=== PATIENT | male | born 1975 | race Caucasian/White ===

== ENCOUNTER 2017-04-28 02:49 | Emergency (ER) | payer MEDICAID ==
[~2017-04-28] VITALS: Ht 167.6 cm; Wt 86.0 kg
[2017-04-28 02:55] VITALS: Ht 167.6 cm; Wt 86.0 kg
[2017-04-28] MEDS ORDERED: SOD CHLORIDE 0.9% 1,000 ML IV STA (04:25)
[2017-04-28 04:58] LABS: ADD SCAN DIFF NO
[2017-04-28 05:00] LABS: BASOPHILS % 0.6 % (0.0-2.0); HEMATOCRIT 41.3 % (42.0-52.0); HEMOGLOBIN 14.8 g/dl (14.0-18.0); LYMPHOCYTES # 0.8 10^3/ul (0.8-2.9); LYMPHOCYTES % 13.5 % (15.0-51.0); MEAN CORPUSCULAR HEMOGLOBIN 31.4 pg (29.0-33.0); MEAN CORPUSCULAR HGB CONC 35.8 g/dl (32.0-37.0); MEAN CORPUSCULAR VOLUME 87.5 fl (82.0-101.0); MEAN PLATELET VOLUME 10.7 fl (7.4-10.4); MONOCYTE # 0.5 10^3/ul (0.3-0.9); MONOCYTES % 8.7 % (0.0-11.0); NEUTROPHIL # 4.8 10^3/ul (1.6-7.5); PLATELET COUNT 180 10^3/UL (140-415); RED BLOOD COUNT 4.72 10^6/ul (4.70-6.10); RED CELL DISTRIBUTION WIDTH 12.3 % (11.5-14.5); WHITE BLOOD COUNT 6.2 10^3/ul (4.8-10.8)
--- NOTE | 2017-04-28 05:13 | RADRPT ---
PROCEDURE: Chest. CLINICAL INDICATION: Chest pain. TECHNIQUE: Single frontal view of the chest was obtained. COMPARISON: None. FINDINGS: The cardiac silhouette is magnified. The aortic arch is unremarkable. There is no focal consolidat ion, vascular congestion or pleural effusion. There is no pneumothorax. IMPRESSION: No evidence for active cardiopulmonary disease. .Lukas Zapien MD, MD Date Time Electronically viewed and signed by .Lukas Zapien MD, on 04/28/2017 05:12 .T/
[2017-04-28 05:19] LABS: INR 1.11; PROTIME 14.3 Sec (12.2-14.2); PT RATIO 1.1
[2017-04-28 05:20] LABS: PARTIAL THROMBOPLASTIN TIME 27.5 Sec (25.0-35.0)
[2017-04-28 05:21] LABS: ANION GAP 24 (8-16); BLOOD UREA NITROGEN 6 mg/dl (7-20); CALCIUM 9.9 mg/dl (8.4-10.2); CARBON DIOXIDE 19 mmol/L (21-31); CHLORIDE 105 mmol/L (97-110); CREATININE 0.69 mg/dl (0.61-1.24); GLUCOSE 122 mg/dl (70-220); POTASSIUM 3.7 mmol/L (3.5-5.1); SODIUM 144 mmol/L (135-144)
[2017-04-28 05:33] LABS: TROPONIN-I < 0.012 ng/ml (0.00-0.12)
--- NOTE | 2017-04-28 06:20 | ERD ---
ER Documentation Chief Complaint Date/Time DATE: 04/28/17 TIME: 06:16 Chief Complaint chest pain, palpitations x 1 hour HPI Patient is a 41-year-old male who presents with sudden onset, constant, moderate shortness of breath that awoke him from sleep at 1 AM. He states that he was very sweaty. He vomited once. He stated that he had slight discomfort in the epigastrium. He denies back pain. He reports cough productive of yellow sputum. He felt like he had a subjective fever. He denies headache, abdominal pain, diarrhea, hemoptysis. He does report mild pain with deep inspiration. He states that his symptoms resolved around 5:30 AM. ROS All systems reviewed and are negative except as per history of present illness. Allergies Allergies: Coded Allergies: No Known Drug Allergies (Verified Allergy, Unknown, 04/28/17) PMhx/Soc Past medical history: Denies Past surgical history: Denies Social history: Denies tobacco, drinks alcohol occasionally, denies drugs. Patient states he drank daily for the last 5 days due to being on vacation. History of Surgery: No Anesthesia Reaction: No Hx Neurological Disorder: No Hx Respiratory Disorders: No Hx Cardiac Disorders: No Hx Psychiatric Problems: No Hx Miscellaneous Medical Probl: No Hx Alcohol Use: Yes (DAILY ) Hx Substance Use: No Hx Tobacco Use: No Smoking Status: Never smoker FmHx Family History: No coronary disease, No diabetes Physical Exam Vitals Vital Signs Date Time Temp Pulse Resp B/P Pulse Ox O2 Delivery O2 Flow Rate FiO2 04/28/17 06:39 98.4 72 18 190/94 98 Room Air 04/28/17 04:30 69 16 103/61 95 Room Air 04/28/17 02:55 98.5 118 20 146/88 98 Physical Exam Const: Alert, no acute distress Head: Atraumatic Eyes: Normal Conjunctiva, no pallor, no icterus ENT: Normal External Ears, Nose and Mouth. Mucous membranes moist Neck: Full range of motion. No JVD. No meningismus. Resp: Clear to auscultation bilaterally, no wheezes, no rales Cardio: Regular rate and rhythm, no murmurs Abd: Soft, non tender, non distended. No rebound or guarding Skin: No petechiae or rashes Back: No midline or flank tenderness Ext: No cyanosis, or edema Neur: Awake and alert, cranial nerves II through XII intact bilaterally, strength and sensation full in 4 extremities. Psych: Normal Mood and Affect Result Diagram: 04/28/17 0450 04/28/17 0450 Results 24 hrs Laboratory Tests Test 04/28/17 04:40 04/28/17 04:50 04/28/17 06:10 04/28/17 06:44 D-Dimer 414.66ng/ml D-Dimer Comment White Blood Count 6.210^3/ul Red Blood Count 4.7210^6/ul Hemoglobin 14.8g/dl Hematocrit 41.3% Mean Corpuscular Volume 87.5fl Mean Corpuscular Hemoglobin 31.4pg Mean Corpuscular Hemoglobin Concent 35.8g/dl Red Cell Distribution Width 12.3% Platelet Count 38933^3/UL Mean Platelet Volume 10.7fl Neutrophils % 77.0% Lymphocytes % 13.5% Monocytes % 8.7% Eosinophils % 0.0% Basophils % 0.6% Nucleated Red Blood Cells % 0.0/100WBC Neutrophils # 4.810^3/ul Lymphocytes # 0.810^3/ul Monocytes # 0.510^3/ul Eosinophils # 0.010^3/ul Basophils # 0.010^3/ul Nucleated Red Blood Cells # 0.010^3/ul Prothrombin Time 14.3Sec Prothrombin Time Ratio 1.1 INR International Normalized Ratio 1.11 Activated Partial Thromboplast Time 27.5Sec Sodium Level 144mmol/L Potassium Level 3.7mmol/L Chloride Level 105mmol/L Carbon Dioxide Level 19mmol/L Anion Gap 24 Blood Urea Nitrogen 6mg/dl Creatinine 0.69mg/dl Glucose Level 122mg/dl Calcium Level 9.9mg/dl Troponin I < 0.012ng/ml < 0.012ng/ml Lactic Acid Level 1.6mmol/L Urine Color LT. YELLOW Urine Clarity CLEAR Urine pH 7.5 Urine Specific [place] 1.015 Urine Ketones 40 Urine Nitrite NEGATIVE Urine Bilirubin NEGATIVE Urine Urobilinogen 0.2 E.U./dL Urine Leukocyte Esterase NEGATIVE Urine Microscopic RBC 0-2/HPF Urine Microscopic WBC 0-2/HPF Urine Squamous Epithelial Cells OCCASIONAL Urine Hemoglobin TRACE Urine Glucose NEGATIVE% Urine Total Protein 1+ Urine Opiates Screen Negative Urine Barbiturates Negative Urine Amphetamines Screen Negative Urine Benzodiazepines Screen Negative Urine Cocaine Screen Negative Urine Cannabinoids Negative Current Medications Medications (Trade) Dose Ordered Sig/Angela Route PRN Reason Start Time Stop Time Status Last Admin Dose Admin Sodium Chloride (NS) 1,000 ml @ 1,000 mls/hr Q1H STAT IV 04/28/17 04:25 04/28/17 05:24 DC 04/28/17 04:49 Procedures/MDM EKG read by me: Time 0303, rate 105 Rhythm: Sinus tachycardia [place]: Rightward axis Intervals: Normal intervals ST-T waves: no ischemic changes Ectopy: No Q-waves: No Impression: Mild tachycardia, regular axis, otherwise normal. MDM: Patient is a 41-year-old male who presents to the ER with complaint of a 4 hour episode of shortness of breath that awoke him from sleep. He described a very mild epigastric discomfort and one episode of vomiting. He states that he has been drinking heavily for the last 5 days. He reported mild inspiratory chest pain. EKG is nonischemic. 2 troponins are negative in the setting of symptoms that were constant for 4 hours, and have now completely resolved. Patient does not have any risk factors for coronary artery disease, no family history, no personal history. The patient has no risk factors for PE and has a negative d-dimer. The patient reports a cough productive of yellow sputum, but has no fever or signs of sepsis, no infiltrate on chest x-ray. The patient has a normal lactic acid, but has a slightly diminished bicarbonate, and ketones in his urine. This may be due to mild alcoholic ketoacidosis. The patient's labs are otherwise unremarkable. I suspect that the patient's symptoms may be due to upper respiratory infection. He is currently asymptomatic. He is tolerating oral intake. I believe he can be safely discharged with return precautions, and have advised him to follow-up tomorrow with his PMD. Departure Diagnosis: Primary Impression: Shortness of breath Additional Impression: Vomiting Vomiting type: unspecified Vomiting Intractability: non-intractable Nausea presence: with nausea Qualified Code: R11.2 - Non-intractable vomiting with nausea, unspecified vomiting type Condition: KARLA Mar MD Apr 28, 2017 06:20
[2017-04-28 06:57] LABS: D-DIMER 414.66 ng/ml (<460)
[2017-04-28 07:02] LABS: ADD UMIC YES; UR BILIRUBIN (Dip) NEGATIVE (NEGATIVE); UR BLOOD (Dip) TRACE (NEGATIVE); UR CLARITY CLEAR (CLEAR); UR COLOR LT. YELLOW (YELLOW); UR GLUCOSE (Dip) NEGATIVE (NEGATIVE); UR KETONES (Dip) 40 (NEGATIVE); UR LEUKOCYTE ESTERASE (Dip) NEGATIVE (NEGATIVE); UR NITRITE (Dip) NEGATIVE (NEGATIVE); UR TOTAL PROTEIN (Dip) 1+ (NEGATIVE); UR UROBILINOGEN (Dip) 0.2 E.U./dL (0.1-1.0)
[2017-04-28 07:21] LABS: URINE RBCS 0-2 /HPF (0)
[2017-04-28 07:22] LABS: UR SQUAMOUS EPITHELIAL CELL OCCASIONAL
[2017-04-28 07:29] LABS: BARBITURATES Negative (NEGATIVE); BENZODIAZEPINES Negative (NEGATIVE); CANNABINOIDS Negative (NEGATIVE); COCAINE Negative (NEGATIVE); OPIATES Negative (NEGATIVE)
[2017-04-28 10:21] VITALS: BP 132/87; PULSE 71; RESP 17; TEMP 98.7
== END 2017-04-28 10:26 | disposition home or self-care (01) ==
LOC: FTE 02:49
DX: R06.02 Shortness of breath (principal); R11.2 Nausea with vomiting, unspecified
CPT/HCPCS: 36415; 71010; 80048; 80307; 81001; 83605; 84484; 85025; 85378; 85610; 85730; 93005; 96360; 96361; J7030; Z7502